=== PATIENT | female | born 1955 | race Caucasian/White ===

== ENCOUNTER → 2016-08-05 | Outpatient (CLI) | payer BC ==
[~2016-08-05] MED LIST: ASPCH81X PO; ATOR-22 PO; CHOL400C7 PO; CIPR1TAB11 PO; ESTR1GEL EXT; KRIL1CAP7 PO; LEVO112T4 PO; METR-163 PO; MULTTAB45 PO; NXM/40 PO; OPTIRAY 320 IV PRN; PROB1TAB16 PO; SULF800T23 PO
--- NOTE | 2016-08-05 19:18 | DIAGNOSTIC IMAGING REPORT ---
CT OF THE ABDOMEN AND PELVIS WITH CONTRAST CLINICAL HISTORY: Left lower quadrant pain. Evaluate for acute diverticulitis. COMPARISON STUDY: Right upper quadrant ultrasound May 07, [address] of the abdomen and pelvis June 15, 2008. TECHNIQUE: Following IV administration of 116 mL of Optiray-320, axial images of the abdomen and pelvis were obtained from the lung bases to the proximal femurs. Images were reviewed in the axial, sagittal, and coronal planes. IV contrast was administered without complication. Oral contrast was administered. CT DOSE: 432.13 mGy.cm FINDINGS: No pneumatosis, free air or portal venous gas is present. The liver, spleen, adrenal glands, pancreas and right kidney are normal. There is a cyst within the lower pole of the left kidney that measures 2 cm. There is no hydronephrosis. There is no biliary ductal dilatation status post cholecystectomy. There is no evidence for a bowel obstruction. There is an inflamed diverticulum of the proximal descending colon with mild infiltration. There is no free air or abscess. There is sigmoid diverticulosis as well. The uterus is surgically absent. There is no lymphadenopathy. Skeletal structures are unremarkable. IMPRESSION: Mild acute diverticulitis of the proximal descending colon. No free air or abscess. Electronically signed by: Suman Lyn M.D. 08/05/2016 7:17 PM Dictated Date/Time: 08/05/2016 7:12 PM
== END | disposition home or self-care (01) ==
LOC: C.CTS 17:05
PROVIDERS: ATTEND Internal Medicine
DX: K57.32 Diverticulitis of large intestine without perforation or abscess without bleeding (principal)

== ENCOUNTER → 2017-01-03 | Outpatient (CLI) | payer BC ==
[~2017-01-03] MED LIST changes: -CHOL400C7 PO; -ESTR1GEL EXT; -KRIL1CAP7 PO; -MULTTAB45 PO; -NXM/40 PO; -OPTIRAY 320 IV PRN
--- NOTE | 2017-01-03 09:59 | DIAGNOSTIC IMAGING REPORT ---
LEFT KNEE 4 OR MORE CLINICAL HISTORY: 61 years-old Female presenting with LEFT KNEE PAIN. TECHNIQUE: Bilateral frontal views of the knees in standing position and lateral, tunnel, and sunrise views of the left knee were obtained. COMPARISON: Correlation made to plain radiographs of the knees from 2013. FINDINGS: Bilateral frontal views of the knee while standing demonstrate mild joint space loss of the lateral compartment in the left knee, which is similar to the right knee. Osteophytosis noted both medially and laterally in both knees, although more severe on the left. Additional osteophytosis noted at the patellofemoral articulation. Small knee joint effusion may be present. No acute fracture or malalignment. Ossicle at the proximal pole of the fibular head could suggest prior avulsion injury or absence of fusion of and ossification center. 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 Less severe degenerative changes in the right knee. Electronically signed by: Ananda Mauricio M.D. 01/03/2017 9:58 AM Dictated Date/Time: 01/03/2017 9:55 AM
== END | disposition home or self-care (01) ==
LOC: C.RDSM 13:14
PROVIDERS: ATTEND Physician Assistant
DX: M25.562 Pain in left knee (principal)

== ENCOUNTER → 2017-01-20 | Outpatient (CLI) | payer BC ==
[2017-01-20 14:40] LABS: MANUAL MICROSCOPIC REQUIRED? NO; REVIEW REQ? NO; URINE APPEARANCE CLEAR (CLEAR); URINE BILIRUBIN NEG (NEG); URINE COLOR YELLOW; URINE NITRITE NEG (NEG); URINE PH 6.5 (4.5-7.5); URINE SPECIFIC GRAVITY 1.018 (1.000-1.030); UROBILINOGEN NEG (NEG)
== END | disposition home or self-care (01) ==
LOC: C.LABSPEC 13:56
PROVIDERS: ATTEND Obstetrics & Gynecology
DX: N30.00 Acute cystitis without hematuria (principal)

== ENCOUNTER → 2017-02-15 | Outpatient (CLI) | payer BC ==
[2017-02-15 14:02] LABS: BASO % 0.5 %; BASO ABS # 0.03 K/uL (0-0.2); COMPLETE YES; HEMATOCRIT 39.4 % (37-47); LYMPH % 26.6 %; LYMPH ABS # 1.69 K/uL (1.2-3.4); MEAN CELL VOLUME 87.9 fL (80-100); MEAN CORPUSCULAR HEMOGLOBIN 28.6 pg (25-34); MEAN CORPUSCULAR HGB CONC 32.5 g/dl (32-36); MEAN PLATELET VOLUME 9.7 fL (7.4-10.4); MONO % 11.5 %; NEUT % 58.4 %; PLATELET COUNT 299 K/uL (130-400); RED BLOOD COUNT 4.48 M/uL (4.2-5.4); WHITE BLOOD COUNT 6.35 K/uL (4.8-10.8)
[2017-02-15 14:12] LABS: ALT/SGPT 48 U/L (12-78); AST/SGOT 24 U/L (15-37); BLOOD UREA NITROGEN 9 mg/dl (7-18); BUN/CREATININE RATIO 12.4 (10-20); CALCIUM 8.8 mg/dl (8.5-10.1); CARBON DIOXIDE 28 mmol/L (21-32); CHLORIDE 106 mmol/L (98-107); CREATININE 0.73 mg/dl (0.60-1.20); GLUCOSE 80 mg/dl (70-99); POTASSIUM 4.2 mmol/L (3.5-5.1); SODIUM 140 mmol/L (136-145)
[2017-02-15 14:22] LABS: ALB/GLOB RATIO 0.9 (0.9-2); ALKALINE PHOSPHATASE 132 U/L (45-117); CHOLESTEROL 262 mg/dl (0-200); CHOLESTEROL/HDL RATIO 4.8; HDL CHOLESTEROL 55 mg/dl; LDL CHOLESTEROL CALCULATED 191 mg/dl; TRIGLYCERIDES 80 mg/dl (0-150); VERY LOW DENSITY LIPOPROT CALC 16 mg/dl
[2017-02-15 14:54] LABS: URINE APPEARANCE CLEAR (CLEAR); URINE BILIRUBIN NEG (NEG); URINE COLOR YELLOW; URINE NITRITE NEG (NEG); URINE SPECIFIC GRAVITY 1.018 (1.000-1.030); UROBILINOGEN NEG (NEG); ZZUR CULT IF INDIC CLEAN CATCH NO
[2017-02-15 15:01] LABS: MANUAL MICROSCOPIC REQUIRED? NO; REVIEW REQ? NO
== END | disposition home or self-care (01) ==
LOC: C.LABBC 08:54
PROVIDERS: ATTEND Internal Medicine
DX: E03.9 Hypothyroidism, unspecified (principal); R10.31 Right lower quadrant pain

== ENCOUNTER → 2017-02-19 | Day surgery (SDC) | payer BC, OTHER ==
[2017-02-05 13:21] VITALS: Ht 163.8 cm; Wt 67.3 kg
[~2017-02-19] VITALS: Ht 163.8 cm; Wt 67.3 kg
[~2017-02-19] MED LIST changes: +FENTANYL CITRATE INJ 50 MCG/1 ML 2 ML VIAL ONE; +LIDOCAINE HCL 2% 2 ML VIAL (20MG/ML) ONE; +PROPOFOL IV EMULSION 10 MG/ML 20 ML VIAL IV ONE; +SODIUM CHLORIDE 0.9% 500ML 500 ML IV ONE
--- NOTE | 2017-02-19 13:38 | Endo History and Physical ---
History & Physical Date of Service: Feb 19, 2017. Chief Complaint: screening Referring Physician: Dr. Ananda Healy History of Present Illness 61 yo CF who presents for screening colonoscopy. Past Surgical History Hx Cardiac Surgery: No Hx Internal Defibrillator: No Hx Pacemaker: No Hx Abdominal Surgery: Yes (APPY, NALINI BSO) Hx of Implantable Prosthesis: No Hx Post-Op Nausea and Vomiting: No Hx Cancer Surgery: No Hx Thoracic Surgery: No Hx Orthopedic: Yes (RT RCR) Hx Urinary Tract Surgery: No Family History None Social History Smoking Status: Never Smoker Hx Substance Use: No Hx Alcohol Use: Yes (OCCASIONALLY) Allergies Coded Allergies: Penicillins (Verified Allergy, Intermediate, HIVES, 02/05/17) Adhesives (Verified Allergy, Unknown, RASH IF LEFT ON FOR LONG TIME, ) Current Medications Reported Home Medications Medications Dose Route/Sig Max Daily Dose Days Date Category Cipro (Ciprofloxacin) 250 Mg Tab 500 Mg PO BID 02/19/17 Reported Aspirin Chewable (Aspirin) 81 Mg Chew 81 Mg PO QAM 02/05/17 Reported Probiotic (Probiotic Product) 1 Tab Tab 1 Tab PO BID 10/31/16 Reported Levothyroxine Sodium 112 Mcg Tab 112 Mcg PO QAM 05/07/13 Reported Vital Signs Weight (Kilograms): 67.27 Height (Feet): 5 Height (Inches): 4.5 Date Time Temp Pulse Resp B/P (MAP) Pulse Ox O2 Delivery O2 Flow Rate FiO2 02/19/17 13:22 36.7 79 18 127/80 (96) 98 Room Air Physical Exam General Appearance: WD/WN, no apparent distress Respiratory/Chest: Auscultation: breath sounds normal Cardiovascular: Heart Auscultation: RRR Abdomen: Bowel Sounds: normal Inspection & Palpation: soft, non-distended, no tenderness, guarding & rebound Assessment and Plan Assessment: 61 yo CF who presents for screening colonoscopy. Plan: Proceed with colonoscopy.
--- NOTE | 2017-02-19 14:08 | Discharge Instructions ---
Endoscopy Patient Instructions Date / Procedure(s) Performed Feb 19, 2017. Colonoscopy Allergy Information Coded Allergies: Penicillins (Verified Allergy, Intermediate, HIVES, 02/05/17) Adhesives (Verified Allergy, Unknown, RASH IF LEFT ON FOR LONG TIME, ) Discharge Date / Findings Feb 19, 2017. Diverticulosis Internal hemorrhoids Medication Instructions OK to resume all medications today as prescribed Reported Home Medications Medications Dose Route/Sig Max Daily Dose Days Date Category Cipro (Ciprofloxacin) 250 Mg Tab 500 Mg PO BID 02/19/17 Reported Aspirin Chewable (Aspirin) 81 Mg Chew 81 Mg PO QAM 02/05/17 Reported Probiotic (Probiotic Product) 1 Tab Tab 1 Tab PO BID 10/31/16 Reported Levothyroxine Sodium 112 Mcg Tab 112 Mcg PO QAM 05/07/13 Reported Provider Instructions Activity Restrictions - No exercising or heavy lifting for 24 hours. - Do not drink alcohol the day of the procedure. - Do not drive a car or operate machinery until the day after the procedure. - Do not make any important decisions or sign important papers in 24 hours after the procedure. Following Day: - Return to full activity which may include returning to work/school. Diet Start your diet with liquids and light foods (jello, soup, juice, toast). Then eat your usual diet if not nauseated. Treatment For Common After Affects For mild abdominal pain, bloating, or excessive gas: - Rest - Eat lightly - Lie on right side Follow-Up Information Follow-up with Dr. Ananda Healy as scheduled Anesthesia Information What You Should Know You have had a procedure that required some medicine to reduce anxiety and discomfort. This treatment is called moderate sedation. After receiving the treatment, you may be sleepy, but you will be able to breathe on your own. The effects of the treatment may last for several hours. Follow these instructions along with Activity/Diet recommendations noted above: * Do NOT do anything where dizziness or clumsiness would be dangerous. * Rest quietly at home today, then you can be up and about tomorrow. * Have a responsible person stay with you the rest of today. * You may have had an I.V. today. If so, you may take the dressing off later today. Recommendations Call your doctor if: * Trouble breathing * Continuous vomiting for more than 24 hours * Temperature above 101 degrees * Severe abdominal pain or bloating * Pain not relieved by pain medicine ordered * There is increased drainage or redness from any incision * A large amount of rectal bleeding greater than 2-3 tablespoons. (If you had a polyp/s removed or have hemorrhoids, a small amount of blood - from the rectum is to be expected.) * You have any unanswered questions or concerns. IN THE EVENT OF A SERIOUS EMERGENCY, GO TO THE NEAREST EMERGENCY ROOM Your discharge instructions were prepared by provider Julius Jeronimo. Patient Instructions Signature Page Soraya Luu Patient (or Guardian) Signature/Date: I have read and understand the instructions given to me by my caregivers. Caregiver/RN/Doctor Signature/Date: The above-named patient and/or guardian has received patient instructions on this date. + Original Patient Signature Page (only) stays with chart. Please make copy for patient.
--- NOTE | 2017-02-19 14:14 | GI REPORT ---
Procedure Date: 02/19/2017 1:44 PM THIS REPORT HAS BEEN AMENDED Addendum Number: 1 Addendum Date: 03/05/2017 8:43:15 AM No specimens were collected during this exam, and therefore, no pathology is pending. Repeat colonoscopy in 10 years. Procedure: Colonoscopy Indications: Screening for colorectal malignant neoplasm Medicines: Monitored Anesthesia Care Complications: No immediate complications. Estimated Blood Loss: Estimated blood loss: none. Procedure: Pre-Anesthesia Assessment: - Prior to the procedure, a History and Physical was performed, and patient medications and allergies were reviewed. The patient's tolerance of previous anesthesia was also reviewed. The risks and benefits of the procedure and the sedation options and risks were discussed with the patient. All questions were answered, and informed consent was obtained. Prior Anticoagulants: The patient has taken aspirin, last dose was 1 day prior to procedure. ASA Grade Assessment: II - A patient with mild systemic disease. After reviewing the risks and benefits, the patient was deemed in satisfactory condition to undergo the procedure. After I obtained informed consent, the scope was passed under direct vision. Throughout the procedure, the patient's blood pressure, pulse, and oxygen saturations were monitored continuously. The Scope was introduced through the anus and advanced to the terminal ileum. The colonoscopy was performed without difficulty. The patient tolerated the procedure well. The quality of the bowel preparation was good. The terminal ileum, ileocecal valve, appendiceal orifice, and rectum were photographed. Findings: Multiple small-mouthed diverticula were found in the sigmoid colon. Non-bleeding internal hemorrhoids were found during retroflexion. The hemorrhoids were small. Impression: - Diverticulosis in the sigmoid colon. - Non-bleeding internal hemorrhoids. - No specimens collected. Recommendation: - Resume previous diet. - Continue present medications. - Repeat colonoscopy for surveillance based on pathology results. - Return to primary care physician as previously scheduled. Julius Jeronimo, DO 02/19/2017 2:13:12 PM This report has been signed electronically. Note Initiated On: 02/19/2017 1:44 PM I attest to the content of the Intraoperative Record and orders documented therein, exceptions below Julius Jeronimo, DO 03/05/2017 8:44:04 AM This report has been signed electronically.
--- NOTE | 2017-02-19 14:31 | Anesthesiology Progress Note ---
Anesthesia Post Op Note Date & Time Feb 19, 2017 at 14:31 Vital Signs Pain Intensity: 0 Vital Signs Past 12 Hours Date Time Temp Pulse Resp B/P (MAP) Pulse Ox O2 Delivery O2 Flow Rate FiO2 02/19/17 14:25 67 20 116/61 (79) 94 Room Air 02/19/17 14:10 70 20 107/50 (69) 94 Nasal Cannula 2 02/19/17 13:22 36.7 79 18 127/80 (96) 98 Room Air Notes Mental Status: alert / awake / arousable, participated in evaluation Pt Amnestic to Procedure: Yes Nausea / Vomiting: adequately controlled Pain: adequately controlled Airway Patency, RR, SpO2: stable & adequate BP & HR: stable & adequate Hydration State: stable & adequate Anesthetic Complications: no major complications apparent
[2017-02-19 14:40] VITALS: BP 127/71; PULSE 61; O2SAT 98
== END | disposition home or self-care (01) ==
LOC: C.GI 13:03
PROVIDERS: ATTEND Internal Medicine
DX: Z12.11 Encounter for screening for malignant neoplasm of colon (principal); K21.9 Gastro-esophageal reflux disease without esophagitis; E03.9 Hypothyroidism, unspecified; K64.8 Other hemorrhoids; Z79.82 Long term (current) use of aspirin; Z90.49 Acquired absence of other specified parts of digestive tract; Z90.710 Acquired absence of both cervix and uterus

== ENCOUNTER → 2017-02-21 | Outpatient (CLI) | payer BC ==
[~2017-02-21] MED LIST changes: -FENTANYL CITRATE INJ 50 MCG/1 ML 2 ML VIAL ONE; -LIDOCAINE HCL 2% 2 ML VIAL (20MG/ML) ONE; -PROPOFOL IV EMULSION 10 MG/ML 20 ML VIAL IV ONE; -SODIUM CHLORIDE 0.9% 500ML 500 ML IV ONE
--- NOTE | 2017-02-21 13:34 | DIAGNOSTIC IMAGING REPORT ---
BONE SCAN WHOLE BODY HISTORY: Hepatic cirrhosis K74.60 Unspecified cirrhosis of liver Triphasic scan of liverCTS7 RADIOTRACER: 26.1 mCi Tc-99m MDP STUDY/IMAGES: Planar anterior and posterior whole body imaging was performed 3 hours following the intravenous administration of radiotracer. COMPARISON: None. FINDINGS: Mild scattered degenerative activity of the knees and ankles and feet. Minimal degenerative activity of the sacroiliac joints. Activity characteristics of the axial and appendicular skeleton are otherwise unremarkable. There is no evidence for abnormal soft tissue activity characteristics. IMPRESSION: Minimal scattered degenerative activity. Otherwise negative study The above report was generated using voice recognition software. It may contain grammatical, syntax or spelling errors. Electronically signed by: Dionte Galloway M.D. 02/21/2017 1:33 PM Dictated Date/Time: 02/21/2017 1:30 PM
== END | disposition home or self-care (01) ==
LOC: C.NUCL 09:57
PROVIDERS: ATTEND Internal Medicine
DX: R74.8 Abnormal levels of other serum enzymes (principal)

== ENCOUNTER 2017-02-25 17:23 | Emergency (ER) | payer BC ==
[~2017-02-25] VITALS: Ht 162.6 cm; Wt 72.5 kg
[~2017-02-25 17:23] MED LIST changes: -ATOR-22 PO; -METR-163 PO; -SULF800T23 PO
[2017-02-25 17:36] VITALS: TEMP 36.6; Ht 162.6 cm; Wt 72.5 kg
[2017-02-25] MEDS ORDERED: ATOR-22 PO (17:59)
[2017-02-25] MEDS ORDERED: SODIUM CHLORIDE 0.9% 1000ML 1,000 ML IV STA (18:05)
[2017-02-25] MEDS ORDERED: FENTANYL CITRATE INJ 50 MCG/1 ML 2 ML VIAL IV STA (18:05)
[2017-02-25] MEDS ORDERED: SODIUM CHLORIDE 0.9% 500ML 500 ML IV STA (18:05)
[2017-02-25] MEDS ORDERED: ONDANSETRON INJ 2 MG/ML 2 ML VIAL IV STA (18:05)
[2017-02-25] MEDS ORDERED: OPTIRAY 320 IV PRN (18:15)
--- NOTE | 2017-02-25 18:39 | EMERGENCY ROOM VISIT NOTE ---
History Report prepared by Al: Thor Olguin Under the Supervision of: Dr. Kaitlynn Pantoja M.D. First contact with patient: 17:42 Chief Complaint: RECTAL BLEEDING Stated Complaint: PAIN IN LOWER ABDOMINAL & BLOODY STOOLS/DIARRHEA History of Present Illness The patient is a 61 year old female who presents to the Emergency Room with complaints of intermittent rectal bleeding occurring around 1500 today. She currently rates her discomfort as a 4/10 in severity. The patient states that she had a bowel movement and there was about a table spoon of blood, and the patient's states that it looked more like clots. She additionally states that she is having pain in her lower abdomen, chills, and she has been having diarrhea starting around 1330, and she states that the stool was brown. She additionally states that she was sweaty and nauseous, though she denies any fever or pain with urination. The patient states that she had a colonoscopy about a week and a half ago, and nothing significant was found. She additionally states that she recently has a bladder infection, and she just finished her antibiotics a couple of days ago. Source of History: patient Onset: 1500 Position: other (rectum) Symptom Intensity: 4/10 Quality: other (bleeding) Timing: intermittent Associated Symptoms: + chills, + nausea, + abdominal pain, + diarrhea, No fevers, No urinary symptoms Review of Systems See HPI for pertinent positives & negatives. A total of 10 systems reviewed and were otherwise negative. Past Medical & Surgical Medical Problems: (1) Hypothyroid Surgical Problems: (1) H/O rotator cuff surgery (2) H/O: hysterectomy (3) History of tonsillectomy Family History FHx: hepatic cirrhosis Hypertension Social History Smoking Status: Never Smoker Alcohol Use: occasionally Drug Use: none Marital Status: Occupation Status: employed Current/Historical Medications Scheduled Aspirin (Aspirin Chewable), 81 MG PO QAM Atorvastatin (Lipitor), 20 MG PO QAM Levothyroxine Sodium (Levothyroxine Sodium), 100 MCG PO QAM Metronidazole (Flagyl), 500 MG PO TID Probiotic Product (Probiotic), 1 TAB PO BID Sulfa/Trimethoprim (Bactrim Ds 800MG/160MG), 1 TAB PO BID Allergies Coded Allergies: Penicillins (Verified Allergy, Intermediate, HIVES, 02/25/17) Adhesives (Verified Allergy, Unknown, RASH IF LEFT ON FOR LONG TIME, ) Physical Exam Vital Signs Date Time Temp Pulse Resp B/P (MAP) Pulse Ox O2 Delivery O2 Flow Rate FiO2 02/25/17 20:06 63 16 121/85 96 Room Air 02/25/17 19:03 56 16 112/67 97 Room Air 02/25/17 17:36 36.6 63 16 147/89 98 Room Air Physical Exam Vital signs reviewed. General: Well-appearing female, in no significant distress. HEENT: No scleral icterus, PERRLA, neck supple. Atraumatic. Cardiovascular: Regular rate and rhythm, no extra sounds. Pulmonary: Clear to auscultation bilaterally, normal work of breathing. Abdomen: Left lower quadrant and suprapubic tenderness. Soft, nondistended, positive bowel sounds. Rectal: Minimal fissure. Guaiac negative stool. No significant stool obtained. Musculoskeletal: Atraumatic, no peripheral edema. Neurologic: Patient awake alert and oriented x 3 Skin: Warm, dry, no rash Medical Decision & Procedures ER Provider Diagnostic Interpretation: Radiology results as stated below per my review and radiologist interpretation: ABD/PELVIS IV CONTRAST ONLY CT DOSE: 433.67 mGy.cm HISTORY: Pain Lower belly pain, blood in stool, diverticulitis TECHNIQUE: Multiaxial CT images of the abdomen and pelvis were performed following the use of intravenous contrast. A dose lowering technique was utilized adhering to the principles of ALARA. COMPARISON STUDY: 08/05/2016 FINDINGS: The lung bases are clear. The liver, spleen, pancreas, kidneys, and adrenal glands are within normal limits. Prior cholecystectomy. Small lower pole left renal cyst unchanged. Upper abdominal bowel pattern is nonobstructive. Sigmoid colon shows mild acute diverticulitis with mild pericolonic infiltrative change. No evidence for abscess collection or obstruction. Bladder is midline. No free fluid within the cul-de-sac. IMPRESSION: 1. Mild acute sigmoid diverticulitis. 2. Mild pericolonic infiltrative change. 3. No evidence for abscess collection or obstruction. The above report was generated using voice recognition software. It may contain grammatical, syntax or spelling errors. Electronically signed by: Dionte Galloway M.D. 02/25/2017 7:35 PM Dictated Date/Time: 02/25/2017 7:30 PM Laboratory Results 02/25/17 18:15 Red Blood Count 4.55, Mean Corpuscular Volume 83.1, Mean Corpuscular Hemoglobin 28.8, Mean Corpuscular Hemoglobin Concent 34.7, Mean Platelet Volume 9.2, Neutrophils (%) (Auto) 64.6, Lymphocytes (%) (Auto) 24.9, Monocytes (%) (Auto) 7.7, Eosinophils (%) (Auto) 2.3, Basophils (%) (Auto) 0.4, Neutrophils # (Auto) 4.78, Lymphocytes # (Auto) 1.84, Monocytes # (Auto) 0.57, Eosinophils # (Auto) 0.17, Basophils # (Auto) 0.03 02/25/17 18:15 Test 02/25/17 18:15 02/25/17 19:15 White Blood Count 7.40 K/uL (4.8-10.8) Red Blood Count 4.55 M/uL (4.2-5.4) Hemoglobin 13.1 g/dL (12.0-16.0) Hematocrit 37.8 % (37-47) Mean Corpuscular Volume 83.1 fL (80-100) Mean Corpuscular Hemoglobin 28.8 pg (25-34) Mean Corpuscular Hemoglobin Concent 34.7 g/dl (32-36) Platelet Count 303 K/uL (130-400) Mean Platelet Volume 9.2 fL (7.4-10.4) Neutrophils (%) (Auto) 64.6 % Lymphocytes (%) (Auto) 24.9 % Monocytes (%) (Auto) 7.7 % Eosinophils (%) (Auto) 2.3 % Basophils (%) (Auto) 0.4 % Neutrophils # (Auto) 4.78 K/uL (1.4-6.5) Lymphocytes # (Auto) 1.84 K/uL (1.2-3.4) Monocytes # (Auto) 0.57 K/uL (0.11-0.59) Eosinophils # (Auto) 0.17 K/uL (0-0.5) Basophils # (Auto) 0.03 K/uL (0-0.2) RDW Standard Deviation 39.2 fL (36.4-46.3) RDW Coefficient of Variation 12.9 % (11.5-14.5) Immature Granulocyte % (Auto) 0.1 % Immature Granulocyte # (Auto) 0.01 K/uL (0.00-0.02) Anion Gap 9.0 mmol/L (3-11) Est Creatinine Clear Calc Drug Dose 95.7 ml/min Estimated GFR () 114.2 Estimated GFR (Non- 98.5 BUN/Creatinine Ratio 23.8 (10-20) Calcium Level 9.7 mg/dl (8.5-10.1) Total Bilirubin 0.2 mg/dl (0.2-1) Direct Bilirubin < 0.1 mg/dl (0-0.2) Aspartate Amino Transf (AST/SGOT) 25 U/L (15-37) Alanine Aminotransferase (ALT/SGPT) 42 U/L (12-78) Alkaline Phosphatase 131 U/L (45-117) Total Protein 7.9 gm/dl (6.4-8.2) Albumin 3.9 gm/dl (3.4-5.0) Lipase 218 U/L (73-393) Urine Color YELLOW Urine Appearance CLEAR (CLEAR) Urine pH 5.5 (4.5-7.5) Urine Specific Carmen 1.013 (1.000-1.030) Urine Protein NEG (NEG) Urine Glucose (UA) NEG (NEG) Urine Ketones NEG (NEG) Urine Occult Blood NEG (NEG) Urine Nitrite NEG (NEG) Urine Bilirubin NEG (NEG) Urine Urobilinogen NEG (NEG) Urine Leukocyte Esterase TRACE (NEG) Urine WBC (Auto) 0 /hpf (0-5) Urine RBC (Auto) 0-4 /hpf (0-4) Urine Hyaline Casts (Auto) 0 /lpf (0-5) Urine Epithelial Cells (Auto) 0-5 /lpf (0-5) Urine Bacteria (Auto) NEG (NEG) Laboratory results per my review. Medications Administered Medications (Trade) Dose Ordered Sig/Adriana Route Start Time Stop Time Status Last Admin Dose Admin Fentanyl Citrate (Fentanyl Inj) 50 mcg NOW STAT IV 02/25/17 18:05 02/25/17 18:11 DC 02/25/17 18:33 50 MCG Ondansetron HCl (Zofran Inj) 4 mg NOW STAT IV 02/25/17 18:05 02/25/17 18:11 DC 02/25/17 18:33 4 MG Sodium Chloride 500 ml @ 999 mls/hr Q31M STAT IV 02/25/17 18:05 02/25/17 18:35 DC 02/25/17 18:33 999 MLS/HR Sodium Chloride 1,000 ml @ 125 mls/hr Q8H STAT IV 02/25/17 18:05 02/25/17 20:29 DC 02/25/17 18:34 125 MLS/HR Trimethoprim/ Sulfamethoxazole (Septra Ds 800/ 160MG Tab) 1 tab NOW STAT PO 02/25/17 19:51 02/25/17 19:52 DC 02/25/17 20:00 1 TAB Metronidazole (Flagyl Tab) 500 mg NOW STAT PO 02/25/17 19:51 02/25/17 19:52 DC 02/25/17 20:00 500 MG ED Course 1800: Past medical records reviewed. The patient was evaluated in room C6. A complete history and physical examination was performed. 1804: Sodium Chloride 1000 ml @ 125 mls/hr IV, Sodium Chloride 500 ml @ 999 mls/ hr IV, Zofran Inj 4mg IV, Fentanyl Inj 50mcg IV 1950: Flagyl Tab 500mg PO, Septra Ds 800/160mg Tab PO 1952: Upon reevaluation, the patient appeared to have improvement of her symptoms. I discussed findings with her. She verbalized agreement of the treatment plan. She was discharged home. Medical Decision Differential diagnosis: Etiologies such as appendicitis, diverticulitis, PUD, biliary pathology, UTI, pancreatitis, obstruction, mesenteric ischemia, aortic pathology, infections, inflammatory bowel disease, renal colic, as well as others were entertained. This patient was evaluated and appeared to be in no significant distress. IV access was obtained and laboratory work was drawn. The patient was placed on the school bus monitor and found to be in a normal sinus rhythm. She was hydrated with normal saline solution, given IV fentanyl and Zofran. CT scan abdomen and pelvis was performed and is consistent with a mild acute diverticulitis. This is consistent with the patient's presentation. Laboratory work is fairly unrevealing. Patient recently finished a course of Cipro. According to up-to- date guidelines, the patient can be treated with a course of Bactrim and Flagyl and she is penicillin allergic. Patient was given a prescription for a one- week course of both drugs and advised not to drink alcohol with Flagyl. It was verified with the patient that she does not have an allergy to sulfa drugs. Patient will follow-up with her PCP and/or gastroenterology this week. She was discharged in care of her and will return to the ER for worsening of symptoms or any medical concerns. Medication Reconcilliation Current Medication List: was personally reviewed by me Blood Pressure Screening Patient's blood pressure: Normal blood pressure Impression Primary Impression: Diverticulitis Scribe Attestation The scribe's documentation has been prepared under my direction and personally reviewed by me in its entirety. I confirm that the note above accurately reflects all work, treatment, procedures, and medical decision making performed by me. Departure Information Dispostion Home / Self-Care Prescriptions Metronidazole (Flagyl) 500 Mg Tab 500 MG PO TID for 7 Days, #21 TAB Prov: Kaitlynn Pantoja M.D. 02/25/17 Sulfa/Trimethoprim (Bactrim Ds 800MG/160MG) Tab 1 TAB PO BID, #14 TAB Prov: Kaitlynn Pantoja M.D. 02/25/17 Referrals Ananda Healy M.D. (PCP) Forms HOME CARE DOCUMENTATION FORM, IMPORTANT VISIT INFORMATION, WORK / SCHOOL INSTRUCTIONS Patient Instructions My [facility] Additional Instructions Diagnosis: Diverticulitis Bactrim DS 1 tablet twice daily for 7 days. Flagyl 500 mg THREE times daily for 7 days. Do not drink alcohol with this medication. Drink plenty of clear fluids. Maintain a low residue diet for 1 week. Follow-up with gastroenterology or your primary care physician within the next week. Return to the ER for worsening symptoms or any medical concerns.
[2017-02-25 18:47] LABS: BASO % 0.4 %; BASO ABS # 0.03 K/uL (0-0.2); COMPLETE YES; EOS % 2.3 %; HEMATOCRIT 37.8 % (37-47); IG% 0.1 %; LYMPH % 24.9 %; LYMPH ABS # 1.84 K/uL (1.2-3.4); MEAN CELL VOLUME 83.1 fL (80-100); MEAN CORPUSCULAR HEMOGLOBIN 28.8 pg (25-34); MEAN CORPUSCULAR HGB CONC 34.7 g/dl (32-36); MEAN PLATELET VOLUME 9.2 fL (7.4-10.4); MONO % 7.7 %; NEUT % 64.6 %; PLATELET COUNT 303 K/uL (130-400); RED BLOOD COUNT 4.55 M/uL (4.2-5.4)
[2017-02-25 19:02] LABS: ALT/SGPT 42 U/L (12-78); BLOOD UREA NITROGEN 15 mg/dl (7-18); BUN/CREATININE RATIO 23.8 (10-20); CALCIUM 9.7 mg/dl (8.5-10.1); CARBON DIOXIDE 24 mmol/L (21-32); CHLORIDE 107 mmol/L (98-107); CREATININE 0.61 mg/dl (0.60-1.20); GLUCOSE 90 mg/dl (70-99); POTASSIUM 3.7 mmol/L (3.5-5.1); SODIUM 140 mmol/L (136-145)
[2017-02-25 19:05] LABS: ALKALINE PHOSPHATASE 131 U/L (45-117); AST/SGOT 25 U/L (15-37)
--- NOTE | 2017-02-25 19:37 | DIAGNOSTIC IMAGING REPORT ---
ABD/PELVIS IV CONTRAST ONLY CT DOSE: 433.67 mGy.cm HISTORY: Pain Lower belly pain, blood in stool, diverticulitis TECHNIQUE: Multiaxial CT images of the abdomen and pelvis were performed following the use of intravenous contrast. A dose lowering technique was utilized adhering to the principles of ALARA. COMPARISON STUDY: 08/05/2016 FINDINGS: The lung bases are clear. The liver, spleen, pancreas, kidneys, and adrenal glands are within normal limits. Prior cholecystectomy. Small lower pole left renal cyst unchanged. Upper abdominal bowel pattern is nonobstructive. Sigmoid colon shows mild acute diverticulitis with mild pericolonic infiltrative change. No evidence for abscess collection or obstruction. Bladder is midline. No free fluid within the cul-de-sac. IMPRESSION: 1. Mild acute sigmoid diverticulitis. 2. Mild pericolonic infiltrative change. 3. No evidence for abscess collection or obstruction. The above report was generated using voice recognition software. It may contain grammatical, syntax or spelling errors. Electronically signed by: Dionte Galloway M.D. 02/25/2017 7:35 PM Dictated Date/Time: 02/25/2017 7:30 PM
[2017-02-25 19:44] LABS: URINE APPEARANCE CLEAR (CLEAR); URINE BILIRUBIN NEG (NEG); URINE COLOR YELLOW; URINE EPITHELIAL CELL AUTO 0-5 /lpf (0-5); URINE NITRITE NEG (NEG); URINE PH 5.5 (4.5-7.5); URINE SPECIFIC GRAVITY 1.013 (1.000-1.030); UROBILINOGEN NEG (NEG); ZZUR CULT IF INDIC CLEAN CATCH NO
[2017-02-25 19:51] LABS: MANUAL MICROSCOPIC REQUIRED? NO; REVIEW REQ? NO
[2017-02-25] MEDS ORDERED: SULFAMETHOXAZOLE/TRIMETHOPRIM DS 800/160MG TAB PO STA (19:51)
[2017-02-25] MEDS ORDERED: METRONIDAZOLE 250 MG TAB PO STA (19:51)
[2017-02-25 20:06] VITALS: BP 121/85; PULSE 63; O2SAT 96
[2017-02-25] MEDS ORDERED: METR-163 PO (20:08)
[2017-02-25] MEDS ORDERED: SULF800T23 PO (20:08)
== END 2017-02-25 20:18 | disposition home or self-care (01) ==
LOC: C.EDB 17:25 → C.EDC 20:18
DX: K57.92 Diverticulitis of intestine, part unspecified, without perforation or abscess without bleeding (principal); Z82.49 Family history of ischemic heart disease and other diseases of the circulatory system; E03.9 Hypothyroidism, unspecified; Z79.82 Long term (current) use of aspirin

== ENCOUNTER → 2017-04-28 | Outpatient (CLI) | payer BC ==
[~2017-04-28] MED LIST changes: +ATOR-22 PO; -CIPR1TAB11 PO; +SULF800T23 PO
--- NOTE | 2017-04-28 14:46 | MAMMOGRAPHY REPORT ---
BILATERAL DIGITAL SCREENING MAMMOGRAM WITH CAD: 04/28/2017 CLINICAL HISTORY: Routine screening. Patient has no complaints. TECHNIQUE: Current study was also evaluated with a Computer Aided Detection (CAD) system. Bilateral CC and MLO views were obtained. COMPARISON: Comparison is made to exams dated: 04/24/2016 mammogram, 04/21/2015 mammogram, 4 mammogram, 04/20/2012 mammogram, 01/20/2012 mammogram, and 01/17/2011 mammogram - [facility]. BREAST COMPOSITION: The tissue of both breasts is heterogeneously dense, which may obscure small mas ses. FINDINGS: No suspicious masses, calcifications, or areas of architectural distortion are noted in ei ther breast. There has been no significant interval change compared to prior exams. Scattered bilate ral benign-appearing calcifications are not significantly changed. Oval benign-appearing 8 mm mass i n the right 9:00 breast is stable compared to multiple prior exams. IMPRESSION: ACR BI-RADS CATEGORY 2: BENIGN There is no mammographic evidence of malignancy. A 1 year screening mammogram is recommended. The pa tient will receive written notification of the results. Approximately 10% of breast cancers are not detected with mammography. A negative mammographic report should not delay biopsy if a clinically suggestive mass is present. Elisabeth Schwartz M.D. /:04/28/2017 07:50:22 [employer]: Juliann Lacy RT(R)(M), [facility] letter sent: Normal 1/2 BI-RADS Code: ACR BI-RADS Category 2: Benign
== END | disposition home or self-care (01) ==
LOC: C.MAMM 07:31
PROVIDERS: ATTEND Obstetrics & Gynecology
DX: Z12.31 Encounter for screening mammogram for malignant neoplasm of breast (principal)

== ENCOUNTER → 2017-05-21 | Outpatient (CLI) | payer BC ==
--- NOTE | 2017-05-21 13:17 | DIAGNOSTIC IMAGING REPORT ---
LEFT KNEE 4 VIEWS INCLUDING BILATERAL STANDING AP VIEWS CLINICAL HISTORY: LEFT KNEE PAIN COMPARISON: 12/26/2016 DISCUSSION: There are mild osteoarthritic changes within the right knee in the standing AP view. These remain stable. There are moderate osteophytic changes in the left knee with progressive narrowing of the lateral joint compartment on the standing view. There is patellar spurring. There is a trace joint effusion. No acute fractures are visualized. No destructive lesions are evident. IMPRESSION: Progressive osteoarthritic changes involving the left knee. Electronically signed by: Tony Bone M.D. 05/21/2017 1:16 PM Dictated Date/Time: 05/21/2017 1:14 PM
== END | disposition home or self-care (01) ==
LOC: C.RDSM 12:57
PROVIDERS: ATTEND Physician Assistant
DX: M17.12 Unilateral primary osteoarthritis, left knee (principal)

== ENCOUNTER → 2017-06-18 | Outpatient (CLI) | payer OTHER ==
[~2017-06-18] MED LIST changes: +OPTIRAY 320 IV PRN
--- NOTE | 2017-06-18 18:03 | DIAGNOSTIC IMAGING REPORT ---
CT ABD/PELVIS IV AND ORAL CONT CLINICAL HISTORY: R10.32 LLQ [id number] History of diverticulitis of [id number] COMPARISON STUDY: 02/25/2017 TECHNIQUE: Following the IV administration of 94 mL of Optiray-320, CT scan of the abdomen and pelvis was performed from the lung bases to the proximal femurs. Images are reviewed in the axial, sagittal, and coronal planes. IV contrast was administered without complication. A dose lowering technique was utilized adhering to the principles of ALARA. CT DOSE: 913.72 mGycm FINDINGS: Lower chest: The heart is normal in size and configuration, without pericardial effusion. The lung bases and pleural spaces are clear. Liver: The contrast-enhanced liver is normal in size, contour, and attenuation. There is no intrahepatic biliary ductal dilatation. The hepatic veins and portal veins are patent. Gallbladder: Surgically absent Spleen: Normal in size and attenuation. Pancreas: Unremarkable. Adrenal glands: Unremarkable. Kidneys: There is a 19 mm lower pole left renal cyst. There is no hydronephrosis Bowel: There are no transition zones to indicate bowel obstruction. By history the appendix is surgically absent. There are multiple left colonic diverticula. There is bowel wall thickening involving the proximal sigmoid colon with infiltration of the peridiverticular fat. The findings are indicative of diverticulitis. There are no fluid collections to indicate a peridiverticular abscess. Peritoneum: There is no intraperitoneal free air or abdominal ascites. Vasculature: The abdominal aorta is normal in course and caliber. Adenopathy: None. Pelvic viscera: The uterus appears surgically absent Skeletal structures: No destructive osseous lesions are seen. IMPRESSION: Acute sigmoid diverticulitis. No evidence of peridiverticular abscess. Electronically signed by: Tony Bone M.D. 06/18/2017 6:02 PM Dictated Date/Time: 06/18/2017 5:57 PM
== END | disposition home or self-care (01) ==
LOC: C.CTS 15:38
PROVIDERS: ATTEND Physician Assistant
DX: Z87.19 Personal history of other diseases of the digestive system (principal); R10.32 Left lower quadrant pain; K57.32 Diverticulitis of large intestine without perforation or abscess without bleeding